=== PATIENT | female | born 1990 | race Caucasian/White ===

== ENCOUNTER 2020-05-29 00:51 | Emergency (ER) | payer OTHER ==
--- NOTE | 2020-05-29 07:42 | ER Document Report ---
ED Medical Screen (RME) - General Chief Complaint: Abscess Stated Complaint: ABSCESS UNDER RIGHT ARM - HPI Notes: 05/29/20 07:41 Rapid Medical Exam HPI: Briefly, patient is 29-year-old female who presents to the ED complaining of 4 days of worsening abscess to the right axilla area. Patient says she has a history of these but never this severe and never requiring I&D. They usually resolve with warm compresses. She denies fever, chills, or n/v. pt is not a diabetic. Physical Exam: GENERAL: Well-appearing, well-nourished and in no acute distress. HEAD: Atraumatic, normocephalic. ENT: Moist mucous membranes. RESP: Respirations even and unlabored CV- Regular rate. NEURO: No focal neurological deficits. Moves all extremities spontaneously and on command. skin- right axilla- 4cm area of erythema and swelling, surrounding focal induration w/ a small amount of central fluctuance. no lymphangitis. radial pulse 2+. plan- pain control, bedside I&D. My involvement in this patients care was limited to a rapid initial assessment. A comprehensive ED assessment and evaluation of the patient, analysis of test results, treatment, and completion of the medical decision making process will be performed by other ER providers. 05/29/20 07:44 - Related Data Home Medications: remicaid. [email or web address]. [email or web address] Past Medical History - Social History Chew tobacco use (# tins/day): No Frequency of alcohol use: Occasional Drug Abuse: None Physical Exam - Vital signs Vitals: Temp 98.2 F 05/29/20 01:01 Course - Vital Signs Vital signs: Temp Pulse Resp BP Pulse Ox 98.5 F 97 14 102/70 99 05/29/20 07:06 05/29/20 07:06 05/29/20 07:06 05/29/20 07:06 05/29/20 07:06
[2020-05-29] MEDS ORDERED: LIDOCAINE 1% INJ-PF (10 MG/ML) 30 ML SDV INJ ONE (07:46)
[2020-05-29] MEDS ORDERED: HYDROCODONE/ACETAMINOPHEN 7.5-325 MG TABLET PO ONE (07:46)
--- NOTE | 2020-05-29 08:08 | ER Document Report ---
ED General - General Chief Complaint: Abscess Stated Complaint: ABSCESS UNDER RIGHT ARM Time Seen by Provider: 05/29/20 08:06 - HPI Notes: 29-year-old female with past medical history significant for Crohn's to the emergency department with complaints of an abscess to her right axillary region has been getting worse for about 4 days. She states that she has had problems in this axilla before but never had to have an incision and drainage. She states that she will get a hair bump put warm compresses on it and will go away. She states that she has been putting warm compresses on this but it just keeps getting worse. Denies any fevers, chills, nausea, vomiting, chest pain, shortness of breath. - Related Data Home Medications: remicaid. mvi. [email or web address] Past Medical History - General Information source: Patient - Social History Smoking Status: Never Smoker Chew tobacco use (# tins/day): No Frequency of alcohol use: Occasional Drug Abuse: None Family History: Reviewed & Not Pertinent Patient has homicidal ideation: No Review of Systems - Review of Systems Constitutional: denies: Chills, Fever EENT: No symptoms reported Cardiovascular: denies: Chest pain, Palpitations, Dyspnea, Syncope Respiratory: denies: Cough, Short of breath Gastrointestinal: denies: Abdominal pain, Diarrhea, Nausea, Vomiting Female Genitourinary: No symptoms reported Musculoskeletal: No symptoms reported Skin: See HPI - Abscess right axilla Neurological/Psychological: No symptoms reported -: Yes All other systems reviewed and negative Physical Exam - Vital signs Vitals: Temp 98.2 F 05/29/20 01:01 Selected Entries 05/29/20 07:06 Temperature 98.5 F Pulse Rate [ 97 MONITOR] Respiratory 14 Rate Blood Pressure 102/70 [left arm] Blood Pressure 80 Mean [left arm] O2 Sat by Pulse 99 Oximetry Interpretation: Normal - Notes Notes: PHYSICAL EXAMINATION: GENERAL: Well-appearing, well-nourished and in no acute distress. HEAD: Atraumatic, normocephalic. EYES: Pupils equal round and reactive to light, extraocular movements intact, sclera anicteric, conjunctiva are normal. NECK: Normal range of motion, supple without lymphadenopathy LUNGS: Breath sounds clear to auscultation bilaterally and equal. No wheezes rales or rhonchi. HEART: Regular rate and rhythm without murmurs ABDOMEN: Soft, nontender, normoactive bowel sounds. No guarding, no rebound. No masses appreciated. EXTREMITIES: Normal range of motion, no pitting or edema. No cyanosis. NEUROLOGICAL: No focal neurological deficits. Moves all extremities spontaneously and on command. PSYCH: Normal mood, normal affect. SKIN: Warm, Dry, normal turgor, there is pointing fluctuant abscess to the right axilla with surrounding induration. There is no streaking erythema onto the chest wall. There is no active drainage. Course - Re-evaluation Re-evalutation: 05/29/20 08:31 Impression: Right axillary abscess. Patient tolerated I&D well. There was fair amount of copious discharge. We will go ahead and place on antibiotics and sent home with some pain medicine. Give her information for follow-up with dermatology here as well as surgery should this persist. Patient agrees with the plan. Encouraged to return if any worsening symptoms. - Vital Signs Vital signs: Temp Pulse Resp BP Pulse Ox 98.5 F 97 14 102/70 99 05/29/20 07:06 05/29/20 07:06 05/29/20 07:06 05/29/20 07:06 05/29/20 07:06 - Laboratory Results Critical Laboratory Results Reviewed: No Critical Results - Radiology Results Critical Radiology Results Reviewed: No Critical Results Procedures - Incision and Drainage Right Axilla Time completed: :31 Type: Complex Anesthetic type: 1% Lidocaine mL's of anesthetic: 3 Blade size: 11 I&D procedure: Betadine prep applied, Shurclens applied Incision Method: Incision made by scalpel Amount/type of drainage: Bloody, foul malodorous purulent drainage; approximately 5 cc Discharge - Discharge Clinical Impression: Axillary abscess Condition: Stable Disposition: HOME, SELF-CARE Instructions: Abscess (OM) Additional Instructions: Complete all antibiotics. Continue to apply warm compresses 3 times a day for 20 minutes. Return if worsening pain, redness, swelling or any other concerns. Follow-up with dermatology and surgery. Prescriptions: Hydrocodone/Acetaminophen [[place] 5-325 mg Tablet] 1 tab PO Q8H #6 tablet Doxycycline Hyclate [Vibramycin] 100 mg PO BID #20 capsule Referrals: JOLIE RAY MD [ACTIVE STAFF] - Follow up as needed (for general surgery if symptoms recur) TERRIE VU, [ACTIVE STAFF] - Follow up as needed (for dermatology follow up)
[2020-05-29 09:45] VITALS: BP 106/50
== END 2020-05-29 09:45 | disposition home or self-care (01) ==
LOC: ER 00:51
DX: L02.411 Cutaneous abscess of right axilla (principal)
CPT/HCPCS: 99284; 10061; J3490